=== PATIENT | male | born 1970 | race Caucasian/White ===

== ENCOUNTER 2018-06-23 17:41 | Emergency (ER) | payer BC ==
[2018-06-23 17:53] VITALS: BP 134/92
[2018-06-23] MEDS ORDERED: predniSONE TAB* 20 MG PO ONE (18:52)
[2018-06-23] MEDS ORDERED: Albuterol 2.5 MG/3 ML NEB.SOL* (0.083%) INH ONE (18:52)
[2018-06-23] MEDS ORDERED: Ipratropium 0.5MG/2.5ML NEB* 0.5 MG/2.5 ML NEB.SOLN INH ONE (18:52)
--- NOTE | 2018-06-23 18:52 | UC ---
Respiratory Complaint HPI - HPI Summary HPI Summary: 47 yo male with nasal congestion/facial pressure/now with cough and wheezing symptoms started almost two weeks ago has been using an old inhaler smoker hx bronchitis - History of Current Complaint Chief Complaint: UCRespiratory Stated Complaint: COUGH Time Seen by Provider: 06/23/18 18:46 Hx Obtained From: Patient Onset/Duration: Gradual Onset, Lasting Weeks Timing: Constant Severity Initially: Mild Severity Currently: Moderate Pain Intensity: 0 Pain Scale Used: 0-10 Numeric Character: Cough: Productive Aggravating Factors: Exertion, Deep Breaths Alleviating Factors: Bronchodilator Associated Signs And Symptoms: Positive: Wheezing, Nasal Congestion, Sinus Discomfort Related History: Similar Episode/Dx as: - bronchitis - Allergies/Home Medications Allergies/Adverse Reactions: Allergies Allergy/AdvReac Type Severity Reaction Status Date / Time No Known Allergies Allergy Verified 06/23/18 17:53 PMH/Surg Hx/FS Hx/Imm Hx Respiratory History: Bronchitis - Surgical History Surgical History: Yes Surgery Procedure, Year, and Place: left femur loulou, left fibula plate/screws, partial slpenectomy - Family History Known Family History: Positive: Hypertension - Social History Alcohol Use: None Substance Use Type: None Smoking Status (MU): Light Every Day Tobacco Smoker Type: Cigarettes Amount Used/How Often: 1/2ppd Review of Systems Constitutional: Negative Skin: Negative Eyes: Negative ENT: Nasal Discharge, Sinus Congestion, Sinus Pain/Tenderness Respiratory: Cough Cardiovascular: Negative Gastrointestinal: Negative Genitourinary: Negative Motor: Negative Neurovascular: Negative Musculoskeletal: Negative Neurological: Negative Psychological: Negative Is Patient Immunocompromised?: No All Other Systems Reviewed And Are Negative: Yes Physical Exam Triage Information Reviewed: Yes Appearance: Well-Appearing, No Pain Distress, Well-Nourished, Thin Vital Signs: Initial Vital Signs Temp 98.8 F 06/23/18 17:51 Pulse 87 06/23/18 17:51 Resp 18 06/23/18 17:51 BP 134/92 06/23/18 17:51 Pulse Ox 96 06/23/18 17:51 Vital Signs Reviewed: Yes Eyes: Positive: Conjunctiva Clear ENT: Negative: Nasal congestion, Nasal drainage, Trismus, Muffled voice, Hoarse voice Neck: Positive: Supple, Nontender Respiratory: Positive: No respiratory distress, No accessory muscle use, Wheezing Cardiovascular: Positive: RRR, No Murmur Musculoskeletal: Positive: ROM Intact, No Edema Neurological: Positive: Alert Psychological Exam: Normal Skin Exam: Normal UC Diagnostic Evaluation - Laboratory O2 Sat by Pulse Oximetry: 96 - normal/not hypoxic Re-Evaluation - Re-Evaluation First Eval Re-Evaluation Time: 19:32 Change: Improved - lungs clear Respiratory Course/Dx - Differential Dx/Diagnosis Provider Diagnoses: ACUTE BRONCHITIS WITH BRONCHOSPASM. SMOKER Discharge - Sign-Out/Discharge Documenting (check all that apply): Patient Departure - Discharge Plan Condition: Improved Disposition: HOME Prescriptions: Albuterol HFA INHALER* [Ventolin HFA Inhaler*] 2 puff INH QID #1 mdi Amoxicillin PO (*) [Amoxicillin 875 MG (*)] 875 mg PO BID #14 tab predniSONE [Deltasone 20 MG TAB] 40 mg PO DAILY #10 tab Patient Education Materials: Acute Bronchitis (ED) Referrals: [facility] [place] [facility] [Outside] - As Soon As Possible Additional Instructions: YOU NEED TO STOP SMOKING RECHECK FOR NEW OR WORSENING SYMPTOMS RECHECK IN 4 DAYS IF NOT BETTER - Billing Disposition and Condition Condition: IMPROVED Disposition: Home
== END 2018-06-23 19:40 | disposition home or self-care (01) ==
LOC: UCEAST 17:41
DX: J20.9 Acute bronchitis, unspecified (principal); R06.2 Wheezing; F17.210 Nicotine dependence, cigarettes, uncomplicated
CPT/HCPCS: 99213; G0463; J7512

== ENCOUNTER 2019-04-25 09:50 | Emergency (ER) | payer BC ==
[2019-04-25 09:57] VITALS: BP 147/96
--- NOTE | 2019-04-25 10:16 | UC ---
Respiratory Complaint HPI - HPI Summary HPI Summary: Pt is 48 y/o male with hx of seasonal allergies that smokes 3/4 PPD x 30 years, presents with nonproductive cough x 5 days that keeps him awake at night. He notes shortness of breath, denies chest pain. C/o sore throat and postnasal drip. Denies fevers, chills, fatigue, nausea. Requests a refill for albuterol inhaler and albuterol nebulizer solution. He was prescribed these 8 months ago with similar sx and states they help his symptoms. No other complaints at this time. - History of Current Complaint Chief Complaint: UCRespiratory Stated Complaint: URI Time Seen by Provider: 04/25/19 09:54 Hx Obtained From: Patient Onset/Duration: Sudden Onset, Lasting Days Timing: Constant Severity Initially: Mild Severity Currently: Mild Pain Intensity: 0 Pain Scale Used: 0-10 Numeric Character: Cough: Nonproductive Aggravating Factors: Exertion, Deep Breaths Alleviating Factors: Bronchodilator Associated Signs And Symptoms: Positive: Dyspnea, Wheezing. Negative: Fever, Chills, Pleuritic Chest Pain Related History: Seasonal Allergies - Allergies/Home Medications Allergies/Adverse Reactions: Allergies Allergy/AdvReac Type Severity Reaction Status Date / Time No Known Allergies Allergy Verified 04/25/19 09:57 PMH/Surg Hx/FS Hx/Imm Hx Previously Healthy: Yes - Surgical History Surgical History: Yes Surgery Procedure, Year, and Place: left femur loulou, left fibula plate/screws, partial slpenectomy - Family History Known Family History: Positive: Hypertension - Social History Occupation: Employed Full-time Alcohol Use: Weekly Substance Use Type: None Smoking Status (MU): Light Every Day Tobacco Smoker Type: Cigarettes Amount Used/How Often: 1/2 to 3/4 ppd Review of Systems All Other Systems Reviewed And Are Negative: Yes Constitutional: Negative: Fever, Chills, Fatigue ENT: Positive: Sore Throat. Negative: Ear Ache, Nasal Discharge, Sinus Congestion, Sinus Pain/Tenderness Respiratory: Positive: Shortness Of Breath, Cough Cardiovascular: Negative: Palpitations, Chest Pain Gastrointestinal: Negative: Nausea Neurological: Negative: Headache Physical Exam Triage Information Reviewed: Yes Appearance: Well-Appearing, No Pain Distress, Thin Vital Signs: Initial Vital Signs Temp 99.1 F 04/25/19 09:54 Pulse 70 04/25/19 09:54 Resp 18 04/25/19 09:54 BP 147/96 04/25/19 09:54 Pulse Ox 92 04/25/19 09:54 Vital Signs Reviewed: Yes Eye Exam: Normal Eyes: Positive: Conjunctiva Clear ENT Exam: Normal ENT: Positive: Normal ENT inspection, Pharynx normal, TMs normal, Uvula midline. Negative: Nasal congestion, Tonsillar swelling, Tonsillar exudate, Sinus tenderness Neck exam: Normal Neck: Positive: Supple, Nontender Respiratory: Positive: No respiratory distress, No accessory muscle use, Wheezing - diffuse Cardiovascular Exam: Normal Cardiovascular: Positive: RRR, No Murmur Abdomen Description: Positive: Soft. Negative: Distended Musculoskeletal Exam: Normal Musculoskeletal: Positive: Strength Intact Neurological Exam: Normal Neurological: Positive: Alert Psychological Exam: Normal Skin Exam: Normal Respiratory Course/Dx - Course Course Of Treatment: 48 y/o male with long-term history of tobacco use with diffuse wheezing of b/l lungs and worse cough without fevers and chills, consistent with COPD exacerbation. Pt discharged to home with prescriptions for albuterol inhaler, albuterol nebulizer solution, mucinex, z pack, and steroids. Pt given referral for PCP Patient seen in collaboration with the physician clinical research assistant student. Patient is heavy smoker, treated as COPD with steroids, antibiotics and an help bronchodilators. - Differential Dx/Diagnosis Differential Diagnosis/HQI/PQRI: Other - bronchitis, URI, COPD exacerbation, asthma, pneumonia Provider Diagnosis: COPD with acute exacerbation Discharge - Sign-Out/Discharge Documenting (check all that apply): Patient Departure All imaging exams completed and their final reports reviewed: Yes - Discharge Plan Condition: Good Disposition: HOME Prescriptions: Albuterol 2.5MG/3ML (0.083%)* [Ventolin 2.5 MG/3 ML NEB.ROBINSON*] 2.5 mg INH Q4H PRN #1 unit PRN Reason: Sob/Wheezing Albuterol HFA INHALER* [Ventolin HFA Inhaler*] 2 puff INH Q4H PRN #1 mdi PRN Reason: Sob/Wheezing Azithromycin TAB* [Zithromax TAB (Z-WILD) 250 mg #6 tabs] 2 tab PO .TODAY, THEN 1 DAILY #1 wild guaiFENesin [Mucus-ER Max] 1,200 mg PO BID #14 tab.er.12h predniSONE TAB* [Deltasone TAB*] 50 mg PO DAILY #5 tab Patient Education Materials: COPD (Chronic Obstructive Pulmonary Disease) (ED) Referrals: [facility] [Outside] [facility] [place] [facility] [place]Outside] No Primary Care Phys,NOPCP [Primary Care Provider] - Additional Instructions: Use a humidifier while sleeping. Call for an appointment with the [facility] for follow-up. You would have also been given primary care referral line. Return with fevers, difficulty breathing, worse, new symptoms or other concerns. - Billing Disposition and Condition Condition: GOOD Disposition: Home - Attestation Statements Document Initiated by Anne Marie: Yes Documenting Scribe: CODY Espino Provider For Whom Anne Marie is Documenting (Include Credential): Dr. Tiny pSarksibbacilio Attestation: Ritchie Chu PA-S, scribed for Dr. Franks on 04/25/19 at 1138. Scribe Documentation Reviewed: Yes Provider Attestation: The documentation as recorded by the Ritchie ferrari PA-S accurately reflects the service I personally performed and the decisions made by Dr. Tiny whitehead Status of Scribbacilio Document: Viewed
== END 2019-04-25 10:22 | disposition home or self-care (01) ==
LOC: UCEAST 09:50
DX: J44.1 Chronic obstructive pulmonary disease with (acute) exacerbation (principal); F17.210 Nicotine dependence, cigarettes, uncomplicated
CPT/HCPCS: 99212; G0463

== ENCOUNTER 2019-07-08 07:56 | Emergency (ER) | payer BC ==
[2019-07-08 08:10] VITALS: BP 153/99
[2019-07-08] MEDS ORDERED: Albuterol HFA INHALER* 8 gm MDI INH ONE (08:57)
[2019-07-08] MEDS ORDERED: predniSONE TAB* 20 MG PO ONE (08:57)
--- NOTE | 2019-07-08 09:03 | UC ---
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 he was quite SOB last PM but markedly improved now - History of Current Complaint Chief Complaint: UCRespiratory Stated Complaint: RESP Time Seen by Provider: 07/08/19 08:49 Hx Obtained From: Patient Onset/Duration: Sudden Onset, Lasting Days Timing: Constant Severity Initially: Moderate Severity Currently: Mild Pain Intensity: 0 Pain Scale Used: 0-10 Numeric Character: Cough: Nonproductive Aggravating Factors: Allergens, Exertion Alleviating Factors: Nothing Associated Signs And Symptoms: Positive: Dyspnea - last PM, Wheezing - Allergies/Home Medications Allergies/Adverse Reactions: Allergies Allergy/AdvReac Type Severity Reaction Status Date / Time environmental Allergy Shortness Uncoded 07/08/19 08:10 of Breath Home Medications: Home Medications Ibuprofen 400 mg PO ONCE PRN 07/08/19 [History Confirmed 07/08/19] PMH/Surg Hx/FS Hx/Imm Hx Previously Healthy: Yes - Surgical History Surgical History: Yes Surgery Procedure, Year, and Place: left femur loulou, left fibula plate/screws, partial splenectomy - Family History Known Family History: Positive: Hypertension Negative: Respiratory Disease - Social History Alcohol Use: Weekly Substance Use Type: None Smoking Status (MU): Light Every Day Tobacco Smoker Type: Cigarettes Amount Used/How Often: 1/2 ppd Household Exposure Type: Cigarettes Review of Systems All Other Systems Reviewed And Are Negative: Yes Constitutional: Positive: Negative Skin: Positive: Negative Eyes: Positive: Negative ENT: Positive: Negative Respiratory: Positive: Shortness Of Breath - last pm, Cough, Other - wheezing Cardiovascular: Positive: Negative Gastrointestinal: Positive: Negative Genitourinary: Positive: Negative Motor: Positive: Negative Neurovascular: Positive: Negative Musculoskeletal: Positive: Negative Neurological: Positive: Negative Psychological: Positive: Negative Physical Exam Triage Information Reviewed: Yes Appearance: Well-Appearing, No Pain Distress, Well-Nourished Vital Signs: Initial Vital Signs Temp 98.1 F 07/08/19 08:04 Pulse 67 07/08/19 08:04 Resp 18 07/08/19 08:04 BP 153/99 07/08/19 08:04 Pulse Ox 95 07/08/19 08:04 Vital Signs Reviewed: Yes Eyes: Positive: Conjunctiva Clear ENT: Positive: Hearing grossly normal. Negative: Nasal congestion, Nasal drainage, Tonsillar swelling, Tonsillar exudate, Hoarse voice Neck: Positive: Supple, Nontender Respiratory: Positive: No respiratory distress, No accessory muscle use, Wheezing - with forced expiration Cardiovascular: Positive: RRR, No Murmur Musculoskeletal: Positive: ROM Intact, No Edema Neurological: Positive: Alert Psychological: Positive: Normal Response To Family Skin Exam: Normal Respiratory Course/Dx - Differential Dx/Diagnosis Provider Diagnosis: Bronchospasm, Elevated BP without diagnosis of hypertension Discharge - Sign-Out/Discharge Documenting (check all that apply): Patient Departure All imaging exams completed and their final reports reviewed: No Studies - Discharge Plan Condition: Stable Disposition: HOME Patient Education Materials: Bronchospasm (ED), How to Use a Metered-Dose Inhaler and a Spacer (ED) Referrals: [facility] [place] [facility] [Outside] - 2 Weeks (recheck 2-12 weeks) Additional Instructions: recheck for worsening symptoms or if not dramatically improved in 2-3 days YOU NEED TO STOP SMOKING you BP needs to be followed you may need pulmonary function tests to check for COPD - Billing Disposition and Condition Condition: STABLE Disposition: Home
== END 2019-07-08 09:11 | disposition home or self-care (01) ==
LOC: UCEAST 07:56
DX: J98.01 Acute bronchospasm (principal); R03.0 Elevated blood-pressure reading, without diagnosis of hypertension; F17.210 Nicotine dependence, cigarettes, uncomplicated
CPT/HCPCS: 99213; A9270-GY; G0463; J7512

== ENCOUNTER 2019-07-27 22:24 | Emergency (ER) | payer BC ==
[2019-07-27] MEDS ORDERED: Albuterol/Ipratropium NEB.SOL* Albuterol 2.5 MG/Ipratropium 0.5 MG 3 ML INH ONE (23:43)
--- NOTE | 2019-07-27 23:45 | ED ---
Shortness of Breath - HPI Summary HPI Summary: This patient is a 48 year old M with a hx of COPD presenting to ED with a chief complaint of SOB since last night. Patient woke up and was unable to catch his breath. Denies cough or sputum production. His dyspnea usually occurs w spring allergies. Patient does not have asthma but states he was told he had COPD in the past and has had an albuterol inhaler. In the ED room, patient still feels SOB. 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 Patient recently quit smoking three weeks ago. He smoked 1ppd for 25 years. Patient denies CP. - History of Current Complaint Chief Complaint: EDShortnessOfBreath Time Seen by Provider: 07/27/19 23:34 Hx Obtained From: Patient Onset/Duration: Lasting Days - Since last night, Still Present Current Severity: Mild Dyspnea At: Rest Aggravating Factors: Nothing Alleviating Factors: Nothing Associated Signs & Symptoms: Negative - CP - Allergy/Home Medications Allergies/Adverse Reactions: Allergies Allergy/AdvReac Type Severity Reaction Status Date / Time environmental Allergy Shortness Uncoded 07/08/19 08:10 of Breath PMH/Surg Hx/FS Hx/Imm Hx Endocrine/Hematology History: Denies: Hx Diabetes, Hx Thyroid Disease Cardiovascular History: Denies: Hx Hypertension Respiratory History: Reports: Hx Chronic Obstructive Pulmonary Disease (COPD) Denies: Hx Asthma GI History: Denies: Hx Ulcer - Surgical History Surgery Procedure, Year, and Place: left femur loulou, left fibula plate/screws, partial splenectomy Infectious Disease History: No Infectious Disease History: Denies: Hx Hepatitis, Hx Human Immunodeficiency Virus (HIV), Traveled Outside the [place] in Last 30 Days - Family History Known Family History: Positive: Hypertension, Other - Negative: blood clots Negative: Cardiac Disease, Respiratory Disease - Social History Alcohol Use: Weekly Hx Substance Use: No Substance Use Type: Reports: None Hx Tobacco Use: Yes Smoking Status (MU): Former Smoker Type: Cigarettes Amount Used/How Often: 1 ppd Review of Systems Negative: Chest Pain Positive: Shortness Of Breath All Other Systems Reviewed And Are Negative: Yes Physical Exam - Summary Physical Exam Summary: Constitutional: Well-developed, Well-nourished, Alert. (-) Distressed Skin: Warm, Dry HENT: Normocephalic; Atraumatic Eyes: Conjunctiva normal Neck: Musculoskeletal ROM normal neck. (-) JVD, (-) Stridor, (-) Nuchal rigidity Cardio: Rhythm regular, rate normal, Heart sounds normal; Intact distal pulses; Radial pulses are 2+ and symmetric (-) Murmur Pulmonary/Chest wall: decreased air entry bilaterally with mild expiratory wheezing Abd: Soft, (-) tenderness, (-) Distension, (-) Guarding, (-) Rebound Musculoskeletal: (-) Edema Lymph: (-) Cervical adenopathy Neuro: Alert, Oriented x3 Psych: Mood and affect Normal Triage Information Reviewed: Yes Vital Signs On Initial Exam: Initial Vitals Temp Pulse Resp BP Pulse Ox 98.6 F 91 18 155/103 90 07/27/19 22:26 07/27/19 22:26 07/27/19 22:26 07/27/19 22:26 07/27/19 22:26 Vital Signs Reviewed: Yes Diagnostics - Vital Signs Vital Signs Temp Pulse Resp BP Pulse Ox 07/27/19 22:26 98.6 F 91 18 155/103 90 - Laboratory Result Diagrams: 07/27/19 23:55 07/27/19 23:55 Lab Statement: Any lab studies that have been ordered have been reviewed, and results considered in the medical decision making process. - Radiology CXR Radiology Interpretation Completed By: ED Physician Summary of Radiographic Findings: Hyper-inflated lungs consistent with COPD, pending official radiology report. - EKG 2353 Cardiac Rate: NL - 72 BPM EKG Rhythm: Sinus Rhythm ST Segment: Normal Ectopy: None Summary of EKG Findings: An EKG at 2353 reveals normal sinus rhythm at 72 BPM, nml axis, nml intervals. No STEMI. No acute changes. Re-Evaluation - Re-Evaluation First Eval Re-Evaluation Time: 00:30 Change: Improved Comment: Patient states he feels improved after DuoNeb. Refilled prescription for albuterol, told to follow-up with primary care doctor and return for worsening symptoms Course/Dx - Course Course Of Treatment: 48-year-old male with a history of heavy tobacco use in the past, possible COPD presents with shortness of breath after being exposed to chemicals at work. PE w dec air entry mild wheezing. Shortness of breath ddx: Most likely COPD will try duoneb. Also consider: PNA - no sputum production, no fevers or chills. No leukocytosis. CXR w/o infiltrate. Low suspicion. PTX - breath sounds equal, no risk factors for PTX, CXR w/o e/o PTX. ACS - no CP, no EKG changes suggestive of ischemia. Low suspicion. CHF - no h/o CHF, no SOTO or orthopnea, no BLE edema, CXR w/o pulmonary edema. PE - no risk factors for PE, no unilateral leg swelling. Baseline hypoxia to 95% - Diagnoses Provider Diagnoses: SOB (shortness of breath), COPD (chronic obstructive pulmonary disease) Discharge ED - Sign-Out/Discharge Documenting (check all that apply): Patient Departure - Discharge Patient Received Moderate/Deep Sedation with Procedure: No - Discharge Plan Condition: Stable Disposition: HOME Prescriptions: Albuterol HFA INHALER* [Ventolin HFA Inhaler*] 1 puff INH Q6H PRN 30 Days #1 mdi PRN Reason: Shortness Of Breath Patient Education Materials: COPD (Chronic Obstructive Pulmonary Disease) (ED) , Shortness of Breath (ED) Referrals: [facility] [Outside] Additional Instructions: You were seen in the emergency department for shortness of breath. This is likely secondary to chronic lung disease. You're given albuterol inhaler that you can take as needed. Please follow up with your primary care doctor return for worsening shortness of breath, chest pain, or if you're concerned. If any studies were not completed at the time of discharge you will be called with the relevant results. Please follow up with your primary care doctor in next 2-3 days and return to emergency department for worsening or concerning symptoms. - Billing Disposition and Condition Condition: STABLE Disposition: Home - Attestation Statements Document Initiated by Anne Marie: Yes Documenting Scribe: Darvin Maciel Provider For Whom Anne Marie is Documenting (Include Credential): Blanche Koch MD Scribe Attestation: I, Darvin Maciel, scribed for Blanche Koch MD on 07/28/19 at 0044. Scribe Documentation Reviewed: Yes Provider Attestation: The documentation as recorded by the Darvin ferrari accurately reflects the service I personally performed and the decisions made by me, Blanche Koch MD Status of Scribe Document: Viewed
[2019-07-28 00:10] LABS: ABS Eosinophils 0.6 10^3/ul (0-0.6); ABS Lymphocytes 2.6 10^3/ul (1.0-4.8); ABS Monocytes 0.8 10^3/ul (0-0.8); ABS Neutrophils 3.7 10^3/ul (1.5-7.7); Eosinophil % 7.3 %; Hematocrit 44 % (42-52); Hemoglobin 14.9 g/dL (14.0-18.0); Mean Corpuscular HGB Conc 34 g/dL (31-36); Mean Corpuscular Hemoglobin 33 pg (27-31); Mean Corpuscular Volume 97 fL (80-94); Mean Platelet Volume 6.5 fL (7.4-10.4); Nucleated Red Blood Cells % 0.1; Platelet Count 282 10^3/uL (150-450); Red Blood Count 4.55 10^6 /uL (4.18-5.48); Red Cell Distribution Width 13 % (10-15); White Blood Count 7.7 10^3/uL (3.5-10.8)
[2019-07-28 00:26] LABS: Albumin 4.3 g/dL (3.2-5.2); Albumin/Globulin Ratio 1.5 (1-3); BUN/Creatinine Ratio 18.6 (8-20); Calcium 9.7 mg/dL (8.6-10.3); EGFR African American 100.4 (>60); Globulin 2.8 g/dL (2-4); Potassium 4.3 mmol/L (3.5-5.0); Total Bilirubin 0.3 mg/dL (0.2-1.0); Total Protein 7.1 g/dL (6.4-8.9)
[2019-07-28 00:54] VITALS: BP 131/90
== END 2019-07-28 00:52 | disposition home or self-care (01) ==
LOC: ED 22:24
DX: R06.02 Shortness of breath (principal); Z87.891 Personal history of nicotine dependence; J44.9 Chronic obstructive pulmonary disease, unspecified
CPT/HCPCS: 36415; 71046; 80053; 82803; 85025; 93005; 99282; A9270-GY

== ENCOUNTER 2019-12-21 07:46 | Emergency (ER) | payer BC ==
--- NOTE | 2019-12-21 08:00 | UC ---
Eye Complaint HPI - HPI Summary HPI Summary: WAS WELDING 4 DAYS AGO WHEN A PIECE OF METAL GOT IN HIS RIGHT EYE. HAS BEEN USING OTC EYEDROPS BUT PAIN AND REDNESS HAVE BEEN PERSISTENT. FEELS WORSE TODAY. BLURRY VISION IN THE RIGHT EYE. CLEAR DRAINAGE. - History of Current Complaint Stated Complaint: FOREIGN OBJECT IN EYE Time Seen by Provider: 12/21/19 07:52 Hx Obtained From: Patient Onset/Duration: Sudden Onset, Lasting Days, Still Present Timing: Constant Severity Initially: Moderate Severity Currently: Moderate Character: Foreign Body Sensation Aggravating Factor(s): Blinking Alleviating Factor(s): Nothing Associated Signs And Symptoms: Positive: Drainage (Clear), Vision Impairment Right - Allergies/Home Medications Allergies/Adverse Reactions: Allergies Allergy/AdvReac Type Severity Reaction Status Date / Time environmental Allergy Shortness Uncoded 07/08/19 08:10 of Breath Home Medications: Home Medications NK [No Home Medications Reported] 12/21/19 [History Confirmed 12/21/19] PMH/Surg Hx/FS Hx/Imm Hx - Surgical History Surgical History: Yes Surgery Procedure, Year, and Place: left femur loulou, left fibula plate/screws, partial splenectomy - Family History Known Family History: Positive: Hypertension, Other - Negative: blood clots Negative: Cardiac Disease, Respiratory Disease - Social History Alcohol Use: Weekly Substance Use Type: None Smoking Status (MU): Former Smoker Type: Cigarettes Amount Used/How Often: 1 ppd Household Exposure Type: Cigarettes Review of Systems All Other Systems Reviewed And Are Negative: Yes Constitutional: Positive: Negative Eyes: Positive: Blurred Vision, Drainage, Eye Redness, Other - FB RIGHT EYE Respiratory: Positive: Negative Cardiovascular: Positive: Negative Gastrointestinal: Positive: Negative Physical Exam Triage Information Reviewed: Yes Appearance: Well-Appearing, No Pain Distress, Well-Nourished Eyes: Positive: Conjunctiva Inflamed - RIGHT EYE, Discharge - CLEAR TEARING RIGHT EYE, Other: - FB EMBEDDED RIGHT CORNEA Neck: Positive: Supple Respiratory: Positive: No respiratory distress, No accessory muscle use Cardiovascular: Positive: Pulses Normal Musculoskeletal: Positive: No Edema Neurological: Positive: Alert Psychological: Positive: Age Appropriate Behavior Skin: Negative: Rashes Eye Complaint Course/Dx - Course Course Of Treatment: FOREIGN BODY HAS BEEN IN PATIENTS EYE FOR [address] LESTER'S OFFICE AND MADE AN APPOINTMENT FOR HIM TO BE SEEN THIS MORNING AT 8:45 AM. PATIENT WILL GO DIRECTLY THERE FROM HERE. - Differential Dx/Diagnosis Provider Diagnosis: Foreign body of right eye Discharge ED - Sign-Out/Discharge Documenting (check all that apply): Patient Departure All imaging exams completed and their final reports reviewed: No Studies - Discharge Plan Condition: Stable Disposition: HOME Patient Education Materials: Eye Foreign Body (ED) Referrals: Melchor Lester MD [Medical Doctor] - (APPT AT 8:45AM TODAY) Additional Instructions: GO DIRECTLY TO DR. LESTER'S OFFICE FROM HERE. THEY ARE EXPECTING YOU. - Billing Disposition and Condition Condition: STABLE Disposition: Home
[2019-12-21 08:07] VITALS: BP 148/97
== END 2019-12-21 08:12 | disposition home or self-care (01) ==
LOC: UCEAST 07:46
DX: T15.01XA Foreign body in cornea, right eye, initial encounter (principal); H10.9 Unspecified conjunctivitis; Z91.09 Other allergy status, other than to drugs and biological substances; Z87.891 Personal history of nicotine dependence; X58.XXXA Exposure to other specified factors, initial encounter; Y92.9 Unspecified place or not applicable
CPT/HCPCS: 99211; G0463